=== PATIENT | female | born 1995 | race Caucasian/White ===

== ENCOUNTER 2017-08-24 18:15 | Emergency (ER) | END 2017-08-24 21:15 | disposition home or self-care (01) ==

== ENCOUNTER 2018-07-03 02:48 | Emergency (ER) | payer OTHER ==
[~2018-07-03] VITALS: Ht 170.2 cm; Wt 128.9 kg
[~2018-07-03 02:48] MED LIST: ACET325T33 PO; AZIT250T PO; IBUP-1542 PO; ONDA4TAB8 PO; PHEN177S6 MM
[2018-07-03 02:51] VITALS: BP 149/103; PULSE 98; RESP 17; Ht 170.2 cm; Wt 128.9 kg
[2018-07-03] MEDS ORDERED: OFLO5DRO7 RIGHT EAR (03:37)
--- NOTE | 2018-07-03 03:42 | ERD ---
ER Documentation Chief Complaint Chief Complaint C/O RT EAR ACHE X1 DAY HPI This is a 22-year-old female with past medical history presents to the ED complaining of1 week of intermittent right ear pain. Patient states she used [id number] eardrops which temporarily improved her pain. Pain became worse again yesterday. She states pain is sharp and localized to her right ear. Pain radiates towards her right face. She reports associated muffled hearing. Denies any dizziness. Denies any trauma. Denies any otorrhea or discharge. No fevers or chills. ROS All systems reviewed and are negative except as per history of present illness. Medications Home Meds Active Scripts Ofloxacin Otic (Ofloxacin Otic) 5 Ml Drops, 10 DROP RIGHT EAR DAILY for 7 Days, #1 BOTTLE Prov:MORENO RECIO PA-C 07/03/18 Phenol* (Throat Combes*) 177 Ml Combes, 2 SPRAY MM Q2H PRN for SORE THROAT for 3 Days, SPRAY Prov:VIDA GAMEZ 08/24/17 Ondansetron Hcl* (Zofran*) 4 Mg Tablet, 4 MG PO Q6H for NAUSEA AND/OR VOMITING, #30 TAB Prov:VIDA GAMEZ 08/24/17 Acetaminophen* (Tylenol*) 325 Mg Tablet, 2 TAB PO Q8 PRN for PAIN AND OR ELEVATED TEMP, #20 TAB Prov:VIDA GAMEZ 08/24/17 Ibuprofen* (Motrin*) 600 Mg Tab, 600 MG PO Q6H PRN for PAIN AND OR ELEVATED TEMP, #30 TAB Prov:KRISTAN NEWELL 03/18/16 Ibuprofen* (Motrin*) 600 Mg Tab, 600 MG PO Q6, #20 TAB Prov:GERARDO SALVADOR PA-C 11/08/15 Azithromycin* (Zithromax*) 250 Mg Tablet, 250 MG PO .ZPACK DIRECTED, #6 TAB TAKE 500 MG (2 TABS) THE FIRST DAY THEN 250 MG (1 TAB) DAYS 2-5 Prov:GERARDO SALVADOR PA-C 11/08/15 Allergies Allergies: Coded Allergies: No Known Allergy (Unverified , 03/18/16) PMhx/Soc Medical and Surgical Hx: pt denies Medical Hx, pt denies Surgical Hx History of Surgery: No Anesthesia Reaction: No Hx Neurological Disorder: No Hx Respiratory Disorders: No Hx Cardiac Disorders: No Hx Psychiatric Problems: No Hx Miscellaneous Medical Probl: No Hx Alcohol Use: No Hx Substance Use: No Hx Tobacco Use: No Smoking Status: Never smoker Physical Exam Vitals Vital Signs Date Temp Pulse Resp B/P (MAP) Pulse Ox O2 O2 Flow FiO2 Time Delivery Rate 07/03/18 98.9 98 17 149/103 96 02:51 (118) Physical Exam Const: No acute distress Head: Atraumatic Eyes: Normal Conjunctiva ENT: + Right ear canal edematous and erythematous. Pain with manipulation of the tragus. Mild tenderness to palpation right preauricular area. No evidence of TM perforation. Left TM and canal normal. Neck: Full range of motion. No meningismus. Resp: Clear to auscultation bilaterally Cardio: Regular rate and rhythm, no murmurs Skin: No petechiae or rashes Neur: Awake and alert Psych: Normal Mood and Affect Results 24 hrs Current Medications Medications Dose Sig/Carlota Start Time Status Last (Trade) Ordered Route PRN Stop Time Admin Dose Reason Admin Ibuprofen 400 mg ONCE ONCE 07/03/18 (Motrin) PO 04:00 07/03/18 04:01 Procedures/MDM ED COURSE: The patient was given ibuprofen The medication was well tolerated and the patient had market improvement in symptoms. The patient remained stable throughout ED course. MEDICAL DECISION MAKIN-year-old female with no slick and past medical history presents with right otalgia. History and physical consistent with otitis externa. No clinical evidence of otitis media, malignant otitis externa, TM perforation, mastoiditis or meningitis. Will treat with rx topical ofloxacin. Recommend following with the regular doctor in 2 days, otherwise return here for any new or worsening symptoms. PRESCRIPTIONS: Ofloxacin SPECIALIST FOLLOW UP RECOMMENDED: None Patient has been advised to follow up with primary care in 1-2 days. Blood Pressure Assessment: Patient's blood pressure was elevated (>120/80) but appears stable without evidence of hypertension emergency or urgency. The patient was counseled about the risks of hypertension and urged to pursue outpatient monitoring and therapy within a week with their primary care physician. Departure Diagnosis: Primary Impression: External otitis of right ear Otitis externa type: swimmer's ear Chronicity: acute Qualified Codes: H60.331 - Swimmer's ear, right ear Condition: Stable Patient Instructions: External Ear Infection (Adult) Additional Instructions: Call your primary care doctor TOMORROW for an appointment during the next 2-4 days and bring all the information and medications prescribed. If the symptoms get worse and your provider is unavailable, return to the Emergency Department immediately. MORENO RECIO PA-C Jul 03, 2018 03:42
[2018-07-03] MEDS ORDERED: IBUPROFEN 200 MG TAB PO ONE (04:00)
== END 2018-07-03 03:57 | disposition home or self-care (01) ==
LOC: FTE 02:48
DX: H60.331 Swimmer's ear, right ear (principal)
CPT/HCPCS: Z7502; Z7610; 99283